=== PATIENT | male | born 1965 | race Caucasian/White ===

== ENCOUNTER 2016-09-15 11:12 | Day surgery (SDC) | payer BC ==
[2016-09-15] MEDS ORDERED: XYLOCAINE MPF 2% ONE (11:30)
[2016-09-15] MEDS ORDERED: WATER FOR IRRIG STERILE ONE (11:37)
[2016-09-15] MEDS ORDERED: WATER FOR IRRIG STERILE IR ONE (11:37)
[2016-09-15] MEDS ORDERED: INFANTS' GAS RELIEF PO ONE (11:40)
[2016-09-15] MEDS ORDERED: NACL 0.9% 1000 ML 1,000 ML IV SCH (12:00)
[2016-09-15] MEDS ORDERED: DIPRIVAN 10 MG/ML IV ONE ×2 (12:19)
--- NOTE | 2016-09-15 12:25 | Anesthesia Consultation ---
Anesthesia Consult and Med Hx Date of service: 09/15/16 - Airway Anesthetic Teeth Evaluation: Good ROM Head & Neck: Adequate Mental/Hyoid Distance: Adequate Mallampati Class: Class III Intubation Access Assessment: Possibly Difficult - Pre-Operative Health Status ASA Pre-Surgery Classification: ASA2 Proposed Anesthetic Plan: MAC - Pulmonary Hx Asthma: Yes - Endocrine Hx Hypothyroidism: Yes - Other Systems Hx Obesity: Yes (overweighted)
--- NOTE | 2016-09-15 12:25 | Anesthesia Day of Surgery ---
Anesthesia Day of Surgery - Day of Surgery Patient Examined: Yes Patient H&P Reviewed: Yes Patient is NPO: Yes
--- NOTE | 2016-09-15 12:26 | Short Stay Summary ---
Short Stay Documentation Date of service: 09/15/16 Narrative H&P: Pt with 3 yr hx of intermittent BRBPR, increasing ash with physical activity. No abd pain, N/V, weight loss, change in qod BMs. No family hx of colon cancer. - History Past Medical History: other (asthma) Past Surgical History: Other (gastric surgery) Social history: , no smoking, no alcohol abuse - Allergies and Medications Current Medications: Allergies No Known Allergies Allergy (Verified 09/15/16 11:43) Home Medications Medication Instructions Recorded Confirmed Last Taken Type Levothyroxine 125 mg PO DAILY 09/15/16 09/15/16 09/14/16 07:00 History Active Medications Sodium Chloride (Nacl 0.9% 1000 Ml) 1,000 mls @ 50 mls/hr IV DIRECT MAGALI Last Admin: 09/15/16 11:30 Dose: 50 mls/hr - Physical exam General appearance: no acute distress Integumentary: no rash HEENT: Atraumatic Lungs: Clear to auscultation Heart: Regular rate, Normal S1, Normal S2 Gastrointestinal: normal, normoactive bowel sounds Extremities: No edema - Brief post op/procedure progress note Date of procedure: 09/15/16 Pre-op diagnosis: Rectal bleeding Post-op diagnosis: other (Colon polyps, hemorrhoids) Procedure: Colonoscopy with hot snare polypectomy and hemorrhoid banding Anesthesia: MAC Findings: 1. 6 mm sessile cecal polyp, and transverse colon polyp, removed with hot snare polypectomy. 2. Moderate external hemorrhoids, with small R anterior internal hemorrhoid - band placed. 3. Mild sigmoid diverticulosis. Surgeon: NANCY COFFEY Estimated blood loss: none Pathology: list (1. Cecal polyp, 2. Transverse colon polyp) Specimen disposition: to lab Condition: stable - Disposition Condition at discharge: Good Disposition: DC-01 TO HOME OR SELFCARE Short Stay Discharge Plan Activity: other (No straining to have BMs for next week, and use stool softeners.) Weight Bearing Status: Full Weight Bearing Diet: regular
[2016-09-15 13:26] VITALS: BP 122/88
--- NOTE | 2016-09-29 18:05 | Operative Report ---
Operative Report Operative Report: Colonoscopy with hot snare polypectomy and hemorrhoidal banding Endoscopist: Bipin Ruggiero Preoperative diagnosis: Rectal bleeding Postoperative diagnosis: Polyps, hemorrhoids, diverticulosis Sedation: MAC by anesthesia History: This is a 51-year-old man with intermittent rectal bleeding. Procedure: Indications risks and benefits were explained and consent was obtained. Patient was placed in left lateral decubitus position and sedated. Fuji video colonoscope was passed through the rectum after digital examination and advanced with minimal difficulty to the cecum which was identified by the ileocecal valve and the appendiceal orifice. Scope was then gradually withdrawn with close inspection of the mucosa. Findings: 1. 6 mm cecal polyp removed with hot snare polypectomy. 2. 6 mm transverse colon polyp removed with hot snare polypectomy. 3. Mild sigmoid diverticulosis. 4. Moderate internal hemorrhoids noted on retroflexion. Right anterior internal hemorrhoid banded with minimal difficulty. 5. Remainder visualized colonic mucosa is normal with no evidence of mass lesions vascular lesions or inflammation. Complications: None Estimated blood loss: Minimal Devices/implants: None Impressions: 1. Colon polyps removed with hot snare polypectomy 2. Hemorrhoid banded. 3. Mild sigmoid diverticulosis. Recommendation: 1. Follow-up pathology, and repeat colonoscopy in 5 years if polyps adenomatous. 2. High-fiber diet. 3. Post hemorrhoidal banding care instructions given.
== END 2016-09-15 11:13 | disposition home or self-care (01) ==
LOC: GIO 11:12
PROVIDERS: ATTEND Internal Medicine Gastroenterology
DX: D12.3 Benign neoplasm of transverse colon (principal); D12.0 Benign neoplasm of cecum; K57.30 Diverticulosis of large intestine without perforation or abscess without bleeding; K64.8 Other hemorrhoids; J45.909 Unspecified asthma, uncomplicated; E03.9 Hypothyroidism, unspecified; E66.3 Overweight; Z68.28 Body mass index [BMI] 28.0-28.9, adult; Z79.899 Other long term (current) drug therapy; Z98.890 Other specified postprocedural states
CPT/HCPCS: 45385; 45398; 88305; J2704